=== PATIENT | female | born 1935 | race Caucasian/White ===

== ENCOUNTER 2021-02-11 18:15 | Emergency (ER) | payer MEDICARE ==
[~2021-02-11] VITALS: Ht 152.4 cm; Wt 59.1 kg
--- NOTE | 2021-02-11 20:10 | RAD ---
Exam: Bilateral feet 3 views INDICATION: Right great toe cellulitis TECHNIQUE: Frontal, lateral and oblique views of the right and left foot Comparisons: None FINDINGS: Right foot: Diffuse osteopenia. Soft tissue swelling at the first digit. No acute or healed fractures. Joint spac es are well-maintained. Left foot: Bone mineralization is normal. No acute or healed fractures. Soft tissues are unremarkable. Joint spa demi are well-maintained. IMPRESSION: 1. Soft tissue swelling at the first digit of the right foot without underlying osseous abnormality. 2. No acute osseous abnormality of the left foot. Electronically signed by: Carine Darden MD (02/11/2021 8:07 PM) JOSELINE
[2021-02-11] MEDS ORDERED: CLIN300C9 PO (20:15)
--- NOTE | 2021-02-11 20:15 | PHYS DOC ---
Past Medical History Past Medical History: Diabetes-Type II, Hypertension Past Surgical History: No Surgical History Smoking Status: Never Smoker Alcohol Use: None General Adult EDM: Chief Complaint: TOE PROBLEM HPI: HPI: Patient is a 85 year old female presents for evaluation of left toe wound. Patient states she has had wound left great toe for several weeks. Patient actually lost her toenail. Patient denies any associated pain. Patient has a past medical history of diabetes but states over the last few weeks she has not been taking her medicines as prescribed. Patient was evaluated by her primary care physician prior to arrival who sent her to the emergency department for further evaluation. On exam toenail is not present the nail bed is red and there is some thickened white tissue along the cuticle. There is no paronychia present. There is no surrounding cellulitis of the toe surrounding the nailbed. Cap refill less than 2 seconds. After initial evaluation plan is to perform an x-ray to make sure there is no bony involvement. Patient will be discharged home on antibiotics she will be referred to podiatry. Review of Systems: Review of Systems: Review of systems: Constitutional symptoms- No fever, no chills. Eyes- No Discharge, No Visual Loss Respiratory symptoms- No shortness of breath, No wheezing, No Dyspnea on Exertion Cardiovascular Systems; No chest pain, No Palpitations, No syncope Gastrointestinal symptoms: NO abdominal pain, no nausea, no vomiting or diarrhea. Genitourinary symptoms: No dysuria. Musculoskeletal symptoms: No back pain No extremity pain. NEUROLOGICAL Symptoms: No headache, no generalized weakness; No focal Weakness Skin--positive loss of toenail, no cellulitis Heart Score: C/O Chest Pain: N/A Risk Factors: Risk Factors: DM, Current or recent (<one month) smoker, HTN, HLP, family history of CAD, obesity. Risk Scores: Score 0 - 3: 2.5% MACE over next 6 weeks - Discharge Home Score 4 - 6: 20.3% MACE over next 6 weeks - Admit for Clinical Observation Score 7 - 10: 72.7% MACE over next 6 weeks - Early Invasive Strategies Allergies: Allergies: Allergies Coded Allergies Type Severity Reaction Last Updated Verified sulfamethoxazole Allergy Intermediate swelling 02/11/21 Yes trimethoprim Allergy Intermediate swelling 02/11/21 Yes codeine Allergy Mild SCHMID 02/11/21 Yes Uncoded Allergies Type Severity Reaction Last Updated Verified PENICILLIN Allergy Intermediate rash, swelling 02/11/21 SULFA Allergy Intermediate swelling 02/11/21 Physical Exam: PE: Constitutional: Well developed, well nourished, no acute distress, non-toxic appearance. [] HENT: Normocephalic, atraumatic, bilateral external ears normal, oropharynx moist, no oral exudates, nose normal. [] Eyes: PERRLA, EOMI, conjunctiva normal, no discharge. [] Neck: Normal range of motion, no tenderness, supple, no stridor. [] Cardiovascular:Heart rate regular rhythm, no murmur [] Lungs & Thorax: Bilateral breath sounds clear to auscultation [] Abdomen: Bowel sounds normal, soft, no tenderness, no masses, no pulsatile masses. [] Skin: As of toenail right great toe, nail bed is red there is no signs of abscess lung the nailbed or the cuticle. There is no surrounding cellulitis no drainage Back: No tenderness, no CVA tenderness. [] Extremities: No tenderness, no cyanosis, no clubbing, ROM intact, no edema. [] Neurologic: Alert and oriented X 3, normal motor function, normal sensory function, no focal deficits noted. [] Psychologic: Affect normal, judgement normal, mood normal. [] Current Patient Data: Vital Signs: Vital Signs Date Time Temp Pulse Resp B/P (MAP) Pulse Ox O2 Delivery O2 Flow Rate FiO2 02/11/21 18:45 98.6 83 16 158/63 (94) 97 Room Air 98.6 EKG: EKG: [] Radiology/Procedures: Radiology/Procedures: [] Impression: FINDINGS: Right foot: Diffuse osteopenia. Soft tissue swelling at the first digit. No acute or healed fractures. Joint spaces are well-maintained. Left foot: Bone mineralization is normal. No acute or healed fractures. Soft tissues are unremarkable. Joint spaces are well-maintained. IMPRESSION: 1. Soft tissue swelling at the first digit of the right foot without underlying osseous abnormality. 2. No acute osseous abnormality of the left foot. Course & Med Decision Making: Course & Med Decision Making Pertinent Labs and Imaging studies reviewed. (See chart for details) [] Patient was evaluated for chief complaint. X-ray performed no bony abnormalities. Patient will be placed on antibiotics referred to podiatry. Cindy Disclaimer: Cindy Disclaimer: This electronic medical record was generated, in whole or in part, using a voice recognition dictation system. Departure Departure Impression: Primary Impression: Nail avulsion, toe Disposition: HOME / SELF CARE / HOMELESS Condition: STABLE Referrals: VERA BARRIOS D.O. (PCP) Patient Instructions: Nail Avulsion Injury Scripts Clindamycin Hcl (CLINDAMYCIN HCL) 300 Mg Capsule 1 CAP PO TID, #30 CAP Prov: SHANELL SAUNDERS DO 02/11/21 SHANELL SAUNDERS DO February 11, 2021 20:15
[2021-02-11 20:40] VITALS: BP 154/69
== END 2021-02-11 21:03 | disposition home or self-care (01) ==
LOC: ER 18:15
DX: S91.202A Unspecified open wound of left great toe with damage to nail, initial encounter (principal); E11.9 Type 2 diabetes mellitus without complications; I10 Essential (primary) hypertension; Z88.0 Allergy status to penicillin; Z88.1 Allergy status to other antibiotic agents; Z88.2 Allergy status to sulfonamides; Z88.5 Allergy status to narcotic agent; X58.XXXA Exposure to other specified factors, initial encounter; Y93.89 Activity, other specified; Y92.89 Other specified places as the place of occurrence of the external cause; Y99.8 Other external cause status
CPT/HCPCS: 99282; 73630-50

== ENCOUNTER → 2021-03-23 | Outpatient (CLI) | payer MEDICARE ==
[~2021-03-23] MED LIST: CLIN300C9 PO
--- NOTE | 2021-03-23 14:13 | CARD ---
MR#: [id number] Date of Study: 03/23/2021 Ordering Physician: JUSTICE LEO, Referring Physician: JUSTICE LEO, Tech: Kenia Barkley [facility] APPROVED REPORT EXAM: Two-dimensional and M-mode echocardiogram with Doppler and color Doppler. Other Information Quality : AverageHR: 65bpm Rhythm : NSR INDICATION Edema 2D DIMENSIONS RVDd3.2 (2.9-3.5cm)IVSd1.2 (0.7-1.1cm) LVDd3.7 (3.9-5.9cm)PWd1.1 (0.7-1.1cm) IVSs1.3 (0.8-1.2cm)LVDs2.5 (2.5-4.0cm) FS (%) 33.0 %PWs1.1 (0.8-1.2cm) SV35.7 mlLVEF(%)62.4 (>50%) Aortic Valve AoV Peak Gael.166.7cm/sAoV VTI32.7cm AO Peak GR.11.1mmHgLVOT Peak Gael.91.4cm/s LVOT VTI 19.25cmAO Mean GR.7mmHg Mitral Valve MV E Sfoofqec40.5cm/sMV DECEL [id number] MV A Emnurguz604.5cm/sMV QCZ43ot E/A Ratio0.7MVA (PHT)3.36cm2 TDI E/Lateral E'16.8E/Medial E'12.0 Pulmonary Valve PV Peak Aqjkkvly77.2cm/sPV Peak Grad.3mmHg Tricuspid Valve TR P. Aakjmtrv521tb/sTR Peak Gr.20mmHg LEFT VENTRICLE The left ventricle is normal size. There is normal left ventricular wall thickness. The left ventricu lar systolic function is normal. Estimated ejection fraction 60-65%. There is normal LV segmental wal l motion. Transmitral Doppler flow pattern is Grade I-abnormal relaxation pattern. RIGHT VENTRICLE The right ventricle is normal size. There is normal right ventricular wall thickness. The right ventr icular systolic function is normal. ATRIA The left atrium size is normal. The right atrium size is normal. The interatrial septum is intact wit h no evidence for an atrial septal defect or patent foramen ovale as noted on 2-D or Doppler imaging. AORTIC VALVE The aortic valve is normal in structure and function. Doppler and Color Flow revealed no significant aortic regurgitation. There is no significant aortic valvular stenosis. MITRAL VALVE The mitral valve is normal in structure and function. There is no evidence of mitral valve prolapse. There is no mitral valve stenosis. Doppler and Color-flow revealed mild mitral regurgitation. TRICUSPID VALVE The tricuspid valve is normal in structure and function. Doppler and Color Flow revealed trace tricus pid regurgitation. Estimated PAP 23 mmHg. There is no tricuspid valve stenosis. PULMONIC VALVE The pulmonary valve is normal in structure and function. Doppler and Color Flow revealed no pulmonic valvular regurgitation. GREAT VESSELS The aortic root is normal in size. The ascending aorta is normal in size. The IVC is normal in size a nd collapses >50% with inspiration. PERICARDIAL EFFUSION There is no evidence of significant pericardial effusion. Critical Notification Critical Value: No <Conclusion> The left ventricular systolic function is normal. Estimated ejection fraction 60-65%. There is normal LV segmental wall motion. Transmitral Doppler flow pattern is Grade I-abnormal relaxation pattern. Mild mitral regurgitation. Trace tricuspid regurgitation. Estimated PAP 23 mmHg. There is no evidence of significant pericardial effusion. Signed by : Patrice Cesar, Electronically Approved : 03/23/2021 14:12:57
== END ==
LOC: ECHO 09:43
PROVIDERS: ATTEND Nurse Practitioner Family
DX: I34.0 Nonrheumatic mitral (valve) insufficiency (principal); R60.9 Edema, unspecified
CPT/HCPCS: 93306